=== PATIENT | male | born 1945 | race Hispanic/Latino ===

== ENCOUNTER 2017-03-11 07:29 | Day surgery (SDC) | payer MEDICARE ==
[2017-03-11 08:41] LABS: Basophils % (Auto) 0.4 % (0.0-1.8); Eosinophils % (Auto) 3.1 % (0.0-4.3); Hematocrit 43.8 % (35.5-45.6); Hemoglobin 14.9 gm/dl (11.8-15.2); Mean Corpuscular HGB Conc 34 % (32-34); Mean Corpuscular Hemoglobin 33 pg (28-32); Mean Corpuscular Volume 98 fl (84-94); Platelet Count 139 K/mm3 (140-440); Red Blood Count 4.48 M/mm3 (3.65-5.03); Red Cell Distribution Width 12.4 % (13.2-15.2); White Blood Count 5.5 K/mm3 (4.5-11.0)
[2017-03-11 08:41] LABS: INR 1.1 (0.87-1.13)
[2017-03-11 08:47] LABS: Anion Gap 17 mmol/L; Blood Urea Nitrogen 15 mg/dL (9-20); Calcium 9.4 mg/dL (8.4-10.2); Carbon Dioxide 26 mmol/L (22-30); Chloride 102.2 mmol/L (98-107); Glucose 104 mg/dL (75-100); Potassium 4.5 mmol/L (3.6-5.0); Sodium 141 mmol/L (137-145)
[2017-03-11] MEDS ORDERED: NACL 0.9% 500 ML 500 ML IV SCH (09:00)
[2017-03-11] MEDS ORDERED: SUBLIMAZE ONE (10:34)
[2017-03-11] MEDS ORDERED: HEPARIN/NS 5000 UNIT/500ML(CATH LAB) 1,000 ML IR ONE (10:34)
[2017-03-11] MEDS ORDERED: HEPARIN 10,000 UNITS/10 ML ONE (10:34)
[2017-03-11] MEDS ORDERED: VERSED ONE (10:34)
[2017-03-11] MEDS ORDERED: CALAN ONE (10:34)
[2017-03-11] MEDS ORDERED: NITROGLYCERIN SYRINGE 3 ML ONE (10:35)
[2017-03-11] MEDS: XYLOCAINE 2% INFILTRATI ONE ×2 (10:48→10:53)
[2017-03-11] MEDS ORDERED: ULTRAM PO PRN (11:22)
--- NOTE | 2017-03-11 11:25 | Discharge Summary ---
Short Stay Discharge Plan Activity: advance as tolerated Weight Bearing Status: Partial Weight Bearing Diet: low fat, low cholesterol, low salt Wound: keep clean and dry Special Instructions: no heavy lifting (3 days) Follow up with: ADY BERMUDEZ MD [Staff Physician] - 7 Days
[2017-03-11] MEDS ORDERED: NACL 0.9% 1000 ML 1,000 ML IV SCH (12:00)
--- NOTE | 2017-03-11 13:54 | Cardiac Catherization Report ---
REASON FOR PROCEDURE: Cardiomyopathy, heart failure and abnormal thallium stress test. PROCEDURE: The patient was prepped and draped in a sterile fashion after informed consent. Initially, we accessed the right radial artery and placed a 6-Yi hydrophilic sheath. Routine radial cocktail was administered via the sheath. The radial approach was abandoned due to extreme tortuosity of the neck vessels, and extreme unfolding of the ascending and arch of the aorta, making catheter manipulation impossible via the radial approach. We then turned our attention to the right femoral approach, a 6-Yi sheath was placed in this location via the Seldinger approach. A #4 left Jody catheter was used for left coronary angiography. A #4 right Jody was used for right coronary angiography. A pigtail catheter was used for left ventricular angiography. The catheters were removed, sheaths were removed, and hemostasis achieved at both right femoral and right radial sites using manual compression. The patient was returned to the postprocedure unit in stable condition. There were no complications. FINDINGS: HEMODYNAMICS: Left ventricle end diastolic pressure was 20, following coronary angiography. Ascending aortic pressure 135/73. There was no significant pressure gradient on pullback across the aortic valve. CORONARY ANGIOGRAPHY: The left main coronary artery was angiographically normal. The left anterior descending artery and the diagonal branches were free of significant disease. The circumflex artery and its obtuse marginal branches were angiographically normal. The right coronary artery was dominant. This vessel contained mild luminal irregularities in its mid segment, with an up to 20% luminal stenosis. The left ventricle was moderately dilated, with mild to moderate left ventricular systolic dysfunction. The estimated ejection fraction was 40%. CONCLUSION: 1. Mild nonobstructive irregularities as noted above, no significant obstructive coronary disease. 2. Mild to moderate, nonischemic cardiomyopathy, ejection fraction of 40%. RECOMMENDATION: Risk factor modification and medical therapy. JOB# [id number] CA/NTS
[2017-03-11 16:10] VITALS: BP 138/79
== END 2017-03-11 16:30 | disposition home or self-care (01) ==
LOC: OPU 07:29
PROVIDERS: ATTEND Internal Medicine Cardiovascular Disease
DX: I25.10 Atherosclerotic heart disease of native coronary artery without angina pectoris (principal); I10 Essential (primary) hypertension; Z72.89 Other problems related to lifestyle; Z79.899 Other long term (current) drug therapy
CPT/HCPCS: 36415; 80048; 85025; 85610; 85730; 93005; 93010; 93458; C1894; J1644; J2250; J3010; J7040; Q9967